=== PATIENT | female | born 1990 | race Caucasian/White ===

== ENCOUNTER 2022-12-21 11:04 | Emergency (ER) | payer SELFPAY ==
[2022-12-21 11:12] VITALS: BP 137/85; PULSE 89; RESP 17; TEMP 36.4; O2SAT 100; BMI 23.3
--- NOTE | 2022-12-21 11:43 | ECG_ITS ---
[facility] Test Date: 2022-12-21 Pat Name: Hanane Fleming Department: Room: Gender: Female Clerical Clerk: : 1990 Requested By: April Hooper Order Number: [id number] Cast MD: Andreea Hargrove M.D. Measurements Intervals [place] Rate: 86 P: 63 CO: 122 QRS: 64 QRSD: 85 T: 62 QT: 387 QTc: 463 Interpretive Statements SINUS RHYTHM No previous ECG available for comparison Electronically Signed On 12-21-2022 20:55:43 TELEPHONE SERVICE ADVISER by Andreea Hargrove M.D. [id number]
--- NOTE | 2022-12-21 11:43 | XRR_ITS ---
PROCEDURE INFORMATION: Exam: XR Chest Exam date and time: 12/21/2022 12:17 PM Age: 32 years old Clinical indication: Other: Syncope TECHNIQUE: Imaging protocol: Radiologic exam of the chest. Views: 1 view. COMPARISON: No relevant prior studies available. FINDINGS: Lungs: Unremarkable. No consolidation. Pleural spaces: Unremarkable. No pleural effusion. No pneumothorax. Heart/Mediastinum: Unremarkable. No cardiomegaly. Bones/joints: Unremarkable. XR/XR chest 1V portable [id number] IMPRESSION: No acute findings.
--- NOTE | 2022-12-21 11:59 | W.ED.MEDCLER ---
HPI - Medical Clearance General: Chief complaint: Medical Clearance Stated complaint: medical Clearance Time Seen by Provider: 12/21/22 11:07 Source: patient Mode of arrival: ambulatory Limitations: no limitations History of Present Illness: Patient is a 32-year-old female presents to ED today stating she was told to come here for medical clearance to go to a detox facility. Patient reportedly is using Fentanyl with her last use being earlier this morning. She reportedly went to work early this morning and had a syncopal episode. She states she was sent to [place] ED but they did not perform any type of work-up. She was subsequently discharged. She states her parents were able to find her a detox facility but was told she needed to come to the ED for medical clearance first. Patient tells me she is not wanting to go to that particular detox facility as it is a year-long treatment program. She is hoping to find a 30-day rehab as her work has told her they will help cover the cost associated with this. 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 She is not suicidal/homicidal. complaint: medical clearance requested Reason for Medical Clearance: other (drug use/syncopal episode) Place: home and work Associated Symptoms: denies other symptoms Treatments Prior to Arrival: none Review of Systems Const: Denies: fever(s), chills, body aches, fatigue or malaise Eyes: Denies: change in vision or blurry vision Card: Reports: syncope; Denies: chest pain, palpitations, irregular heart rhythm, edema, swelling of feet/ankles, lightheadedness, pre-syncope, dyspnea on exertion, orthopnea, leg pain with exertion or acrocyanosis Resp: Denies: dyspnea, productive cough or pain on inspiration GI: Denies: abdominal pain, nausea, vomiting, heartburn or diarrhea : Denies: flank pain, dysuria or pelvic pain Musc: Denies: neck pain, back pain or joint pain Skin/Breast: Denies: rash Neuro: Denies: headache(s), numbness in extremities, weakness in extremities or sensory changes Physical Exam Const: COMMON NORMALS: no acute distress, average body habitus, patient oriented x3, no limitations, healthy appearing, alert and well nourished HENMT: COMMON NORMALS: normocephalic and atraumatic HEAD & SCALP: normal to inspection, normocephalic and atraumatic FACE & SINUS: normal facial exam Eye: GENERAL EYE: appearance normal, both eyes and all related structures and normal light reflex DIRECT OPHTHALMOSCOPY: Yes normal light reflex Neck/C-Spine: COMMON NORMALS: full ROM, no lymphadenopathy, supple and no meningeal signs Chest: COMMONS NORMALS: normal inspection of the chest Resp: COMMON NORMALS: normal respiratory effort and clear to auscultation bilaterally AUSCULTATION: clear to auscultation bilaterally Cardio: COMMON NORMALS: regular rate and regular rhythm RATE: regular rate RHYTHM: regular rhythm GI: COMMON NORMALS: Normal to inspection, nondistended, normoactive bowel sounds present, Soft to palpation, non-tender, No hepatosplenomegaly present and no masses PALPATION: Yes Soft to palpation and Yes No hepatosplenomegaly present : COMMON NORMALS: Yes no CVA tenderness BLADDER/KIDNEY EXAM: Yes no CVA tenderness Back/Pelvis: COMMON NORMALS: no CVA tenderness, thoracic and lumbar spine normal to inspection and no thoracic nor lumbar tenderness Extremity: COMMON NORMALS: normal to inspection GENERAL: Yes normal exam except as noted Neuro: JOSE L COMA SCALE: document GCS findings Jose L coma scale eye opening: Spontaneous Jose L coma scale verbal response: Orientated [place] coma scale motor response: Obey commands [place] coma scale total score: 15 COMMON NORMALS: patient oriented x3, CN's II-XII intact bilaterally, moves all extremities, no focal motor deficits, no sensory deficits noted and gait normal SENSORIUM/ORIENTATION: Yes alert MENINGEAL SIGNS: Yes no meningeal signs Psych: COMMON NORMALS: mental status grossly normal, Normal thought process present, cooperative, normal affect, speech normal, activity/motor behavior normal, denies hallucinations, denies homicidal ideation and denies suicidal ideation APPEARANCE: Yes grossly normal SPEECH: Yes normal speech THOUGHT PROCESS: Normal thought process present INSIGHT: Good insight present (Psych) JUDGEMENT: Good judgement present (Psych) Skin: COMMON NORMALS: no rashes or lesions noted GENERAL SKIN EXAM: no rashes or lesions noted Course Vital Signs: Vital signs: Vital Signs Temperature 97.6 F 12/21/22 11:12 Pulse Rate 89 12/21/22 11:12 Respiratory Rate 17 12/21/22 11:12 Blood Pressure 137/85 12/21/22 11:12 Pulse Oximetry 100 12/21/22 11:12 Oxygen Delivery Me thod Room Air 12/21/22 11:12 MDM - Medical Clearance Medical Decision Making Patient arrives alert and oriented. Her vital signs are normal. Blood work overall is unremarkable. UA showing 2+ leuks, 15-25 WBCs, and 1+ bacteria. She did also test positive for trichomonas. Patient will be placed on Keflex and Flagyl for treatment. She will be discharged and escorted to the Crisis Center for further evaluation and resources on drug rehabilitation facilities. Lab Data 12/21/22 12:25 12/21/22 12:25 Radiology Impressions Chest X-Ray 12/21/22 11:43 IMPRESSION: No acute findings. Laboratory Results WBC 6.01 10^3/uL (3.29-11.43) 12/21/22 12:25 RBC 4.18 10^6/uL (3.85-5.65) 12/21/22 12:25 Hgb 11.70 g/dL (11.27-16.99) 12/21/22 12:25 Hct 37.2 % (36-47) 12/21/22 12:25 MCV 89.0 fl (85-98) 12/21/22 12:25 MCH 28.0 pg (27-33) 12/21/22 12:25 MCHC 31.5 g/dL (30-55) 12/21/22 12:25 RDW 12.1 % (12.1-15.1) 12/21/22 12:25 Plt Count 248 10^3/cmm (157-399) 12/21/22 12:25 MPV 8.7 fL (7.4-10.4) 12/21/22 12:25 Neut % (Auto) 63.3 % 12/21/22 12:25 Lymph % (Auto) 24.5 % 12/21/22 12:25 [place] % (Auto) 9.3 % 12/21/22 12:25 Eos % (Auto) 1.8 % 12/21/22 12:25 Baso % (Auto) 0.8 % 12/21/22 12:25 Neut # (Auto) 3.80 10^3/uL (1.8-7.7) 12/21/22 12:25 Lymph # (Auto) 1.5 10^3/uL (0.8-4.8) 12/21/22 12:25 [place] # (Auto) 0.6 10^3/uL (0.2-0.9) 12/21/22 12:25 Eos # (Auto) 0.1 10^3/uL (0.0-0.8) 12/21/22 12:25 Baso # (Auto) 0.1 10^3/uL (0.0-0.1) 12/21/22 12:25 Nucleated RBC % (auto) 0 % 12/21/22 12:25 Nucleated RBCs # 0.0 /100WBC 12/21/22 12:25 Sodium 141 mmol/L (136-145) 12/21/22 12:25 Potassium 4.2 mmol/L (3.5-5.1) 12/21/22 12:25 Chloride 103 mmol/L (98-107) 12/21/22 12:25 Carbon Dioxide 28 mmol/L (22-29) 12/21/22 12:25 Anion Gap 14.2 (5-19) 12/21/22 12:25 BUN 11 mg/dL (6-20) 12/21/22 12:25 Creatinine 0.7 mg/dL (0.5-0.9) 12/21/22 12:25 GFR Calculation 98.3 mL/min (90-130) 12/21/22 12:25 Glucose 88 mg/dL (65-115) 12/21/22 12:25 Calculated Osmolality 291 mOsm/kg (285-295) 12/21/22 12:25 Calcium 9.3 mg/dL (8.5-10.5) 12/21/22 12:25 Total Bilirubin 0.2 mg/dL (0.15-1.2) 12/21/22 12:25 AST 15 U/L (0-32) 12/21/22 12:25 ALT 14 U/L (0-33) 12/21/22 12:25 Alkaline Phosphatase 76 U/L (35-105) 12/21/22 12:25 Total Protein 7.0 g/dL (6.6-8.7) 12/21/22 12:25 Albumin 4.1 g/dL (3.5-5.2) 12/21/22 12:25 Globulin 2.9 g/dL (1.3-4.6) 12/21/22 12:25 HCG, Qual Negative (Negative) 12/21/22 12:25 Urine Color Yellow (Yellow) 12/21/22 12:15 Urine Appearance Hazy (CLEAR) A 12/21/22 12:15 Urine pH 7 (5-7) 12/21/22 12:15 Ur Specific [place] 1.010 (1.005-1.030) 12/21/22 12:15 Urine Protein Neg (Negative) 12/21/22 12:15 Urine Glucose (UA) Norm (Normal) 12/21/22 12:15 Urine Ketones Negative (Negative) 12/21/22 12:15 Urine Blood Neg (Negative) 12/21/22 12:15 Urine Nitrate Negative (Negative) 12/21/22 12:15 Urine Bilirubin Neg (Negative) 12/21/22 12:15 Urine Urobilinogen Neg mg/dL (Negative) 12/21/22 12:15 Ur Leukocyte Esterase 2+ (Negative) H 12/21/22 12:15 Urine RBC 0-4 /hpf (0-2) H 12/21/22 12:15 Urine WBC 15-25 /hpf (0-5) H 12/21/22 12:15 Ur Squamous Epith Cells 10-15 /hpf (0-5) H 12/21/22 12:15 Amorphous Sediment 2+ /hpf 12/21/22 12:15 Urine Bacteria 1+ /hpf (NONE) H 12/21/22 12:15 Urine Mucus Trace /hpf 12/21/22 12:15 Urine Trichomonas 1+ /hpf H 12/21/22 12:15 Urine Opiates Screen Negative ng/mL (Negative) 12/21/22 12:15 Ur Barbiturates Screen Negative ng/mL (Negative) 12/21/22 12:15 Ur Phencyclidine Scrn Negative ng/mL (Negative) 12/21/22 12:15 Ur Amphetamines Screen Positive ng/mL (Negative) H 12/21/22 12:15 U Benzodiazepines Scrn Positive ng/mL (Negative) H 12/21/22 12:15 Urine Cocaine Screen Negative ng/mL (Negative) 12/21/22 12:15 U Marijuana (THC) Screen Negative ng/mL (Negative) 12/21/22 12:15 No radiology studies performed this visit Discharge Plan Discharge Patient Disposition: Home Clinical Impression: Opiate addiction Qualifiers: Substance use status: uncomplicated Qualified Code(s): F11.20 - Opioid dependence, uncomplicated Urinary tract infection Qualifiers: Urinary tract infection type: acute cystitis Hematuria presence: without hematuria Qualified Code(s): N30.00 - Acute cystitis without hematuria Condition: Stable Prescriptions: New metronidazole 500 mg tablet 500 mg PO BID 7 Days Qty: 14 0RF cephalexin 500 mg capsule 500 mg PO Q6H 7 Days Qty: 28 0RF Discharge Orders: Discharge ED (Routine); Ordered 12/21/22 Ordered By: April Hooper Coding Level of Care Code ED Supervisor Airplane Flight Attendant for [employer]
[2022-12-21 12:31] LABS: Basophils # 0.1 10^3/uL (0.0-0.1); Basophils % 0.8 %; Eosinophils # 0.1 10^3/uL (0.0-0.8); Eosinophils % 1.8 %; Hematocrit 37.2 % (36-47); Lymphocytes # 1.5 10^3/uL (0.8-4.8); Lymphocytes % 24.5 %; Mean Corpuscular HGB Conc 31.5 g/dL (30-55); Mean Platelet Volume 8.7 fL (7.4-10.4); Monocytes # 0.6 10^3/uL (0.2-0.9); Monocytes % 9.3 %; Neutrophils % 63.3 %; Nucleated Red Blood Cells % 0 %; Platelet Count 248 10^3/cmm (157-399); Red Blood Count 4.18 10^6/uL (3.85-5.65); Red Cell Distribution Width 12.1 % (12.1-15.1); White Blood Count 6.01 10^3/uL (3.29-11.43)
--- NOTE | 2022-12-21 12:39 | PC.PHAR ---
PT WOULD LIKE PREFERRED PHARMACY TO BE [facility]. NEEDS ADDED BY IT DEPT.
[2022-12-21 12:45] LABS: Amphetamines Screen Urine Positive (Negative); Barbiturates Screen Urine Negative (Negative); Benzodiazepines Screen Urine Positive (Negative); Cocaine Screen Urine Negative (Negative); Opiate Screen Urine Negative (Negative); PCP Screen Urine Negative (Negative); THC Screen Urine Negative (Negative)
[2022-12-21 12:46] LABS: HCG, Serum Qual Negative (Negative)
[2022-12-21 12:55] LABS: Alanine Aminotransferase 14 U/L (0-33); Albumin Level 4.1 g/dL (3.5-5.2); Alkaline Phosphatase 76 U/L (35-105); Anion Gap 14.2 (5-19); Aspartate Amino Transferase 15 U/L (0-32); Blood Urea Nitrogen 11 mg/dL (6-20); Calcium 9.3 mg/dL (8.5-10.5); Carbon Dioxide 28 mmol/L (22-29); Chloride 103 mmol/L (98-107); Creatinine Clr Calc Pharmacy 114.8128; Globulin 2.9 g/dL (1.3-4.6); Glomerular Filtration Rate 98.3 mL/min (90-130); Glucose 88 mg/dL (65-115); Osmolality Calculated 291 mOsm/kg (285-295); Potassium 4.2 mmol/L (3.5-5.1); Sodium 141 mmol/L (136-145); Total Bilirubin 0.2 mg/dL (0.15-1.2)
[2022-12-21 13:03] LABS: Add Urine Microscopic? YES; Bilirubin Urine Neg (Negative); Blood Urine Neg (Negative); Glucose Urine UA Norm (Normal); Ketones Urine Negative (Negative); Leukocyte Esterase Urine 2+ (Negative); Nitrate Urine Negative (Negative); Protein Urine Neg (Negative); RBC Urine 0-4 /hpf (0-2); Urine Appearance Hazy (CLEAR); Urine Color Yellow (Yellow); Urobilinogen Urine Neg (Negative); WBC Urine 15-25 /hpf (0-5); pH Urine 7 (5-7)
[2022-12-21 13:04] LABS: Add Urine Culture? No; Amorphous Sediment Urine 2+ /hpf; Bacteria Urine 1+ /hpf; Mucus Urine TRACE /hpf; Trichomonas Urine 1+ /hpf
== END 2022-12-21 13:24 | disposition home or self-care (01) ==
PROVIDERS: Emergency Provider Physician Assistant
DX: F11.20 Opioid dependence, uncomplicated (principal); N30.00 Acute cystitis without hematuria
CPT/HCPCS: 36415; 71045; 80053; 80306; 81001; 84703; 85025; 87086; 93005; 99285